=== PATIENT | male | born 1955 | race African-American/Black ===

== ENCOUNTER 2018-03-04 12:43 | Observation (INO) ==
[2018-03-04 14:11] LABS: Basophils # 0.1 10*3/uL (0.0-0.2); Basophils % 1.2 % (0.0-0.8); Eosinophils % 0.7 % (0.00-10.9); Hematocrit 33.9 VOL% (42.0-52.0); Hemoglobin 12.2 GM/DL (14.0-18.0); Immature Granulocytes % 0.3 %; Immature Granulocytes Absolute 0.02 #; Lymphocytes # 1.7 10*3/uL (1.4-4.0); Lymphocytes % 29.7 % (21.2-54.2); Mean Corpuscular Hemoglobin 36 PG (27-34); Mean Platelet Volume 10.8 FL (9.6-12.0); Monocytes # 0.6 10*3/uL (0.11-0.8); Monocytes % 10.6 % (1.7-12.7); Neutrophils # 3.3 10*3/uL (1.4-7.4); Neutrophils % 57.5 % (38.7-73.9); Platelet Count 178 T/CUMM (130-400); Red Blood Count 3.39 MC/CUMM (3.8-5.5); Red Cell Distribution Width 14.9 % (9.3-17.3); White Blood Count 5.7 T/CUMM (4-12)
[2018-03-04 14:30] LABS: Alanine Aminotransferase 17 U/L (16-61); Albumin 3.9 G/DL (3.4-5.0); Alkaline Phosphatase 58 U/L (45-117); Aspartate Amino Transferase 69 U/L (0-37); Blood Urea Nitrogen 9 MG/DL (7-18); Calcium 8.6 MG/DL (8.5-10.1); Glucose 56 MG/DL (74-106); Potassium 3.3 MMOL/L (3.5-5.1); Sodium 143 MMOL/L (136-145); Total Protein 7.2 G/DL (6.4-8.3); Troponin I Only < 0.015 NG/ML (0.00-0.045)
[2018-03-04 14:48] LABS: Apearance,Urine CLEAR (Clear); Bilirubin,Urine Negative (Negative); Blood, Urine Negative (Negative); Glucose,Urine (UA) Negative (Negative); Hyaline Casts,Urine 3 /LPF (0-3); Ketones,Urine 20 mg/dL (Negative); Mucus,Urine Occasional /LPF (Occasional); Nitrite,Urine Negative (Negative); Protein,Urine Negative; Squamous Epithelial Cell,Urine Occasional /HPF (0-10); Urine Color Yellow (Yellow); Urine Specific Gravity 1.018 (1.001-1.035); WBC,Urine 1 /HPF (0-6)
[2018-03-04 15:58] LABS: Lactic Acid 5.8 MMOL/L (0.4-2.0)
[2018-03-04 20:43] LABS: Folate 2.3 NG/ML (5.4-24.0)
[2018-03-04 20:54] LABS: Hepatitis A Ab IgM Quant 0.23 Index; Hepatitis A Ab IgM Result Negative (Negative); Hepatitis B Core IgM Quant 0.15 Index; Hepatitis B Core IgM Result Negative (Negative); Hepatitis B Surface Ag Quant 0.63 Index; Hepatitis B Surface Ag Result Negative (Negative); Hepatitis C Virus Ab Quant 0.17 Index; Hepatitis C Virus Ab Result Negative (Negative)
[2018-03-05 01:32] LABS: Barbiturates Screen,Urine Negative (Negative); Benzodiazepines Screen,Urine Negative (Negative); Cannabinoid Screen,Urine Positive (Negative); Opiate Screen,Urine Negative (Negative); Phencyclidine Screen,Urine Negative (Negative)
[2018-03-05 05:04] LABS: Basophils % 0.8 % (0.0-0.8); Eosinophils # 0.1 10*3/uL (0.0-0.87); Eosinophils % 1.1 % (0.00-10.9); Hematocrit 33.5 VOL% (42.0-52.0); Hemoglobin 11.9 GM/DL (14.0-18.0); Immature Granulocytes % 0.4 %; Immature Granulocytes Absolute 0.02 #; Lymphocytes # 1.1 10*3/uL (1.4-4.0); Lymphocytes % 21.2 % (21.2-54.2); Mean Corpuscular HGB Conc 35.5 GM/DL (32-36); Mean Corpuscular Hemoglobin 35 PG (27-34); Mean Corpuscular Volume 99.4 FL (87-102); Mean Platelet Volume 11.4 FL (9.6-12.0); Monocytes # 0.9 10*3/uL (0.11-0.8); Monocytes % 16.5 % (1.7-12.7); Neutrophils # 3.2 10*3/uL (1.4-7.4); Platelet Count 152 T/CUMM (130-400); Red Blood Count 3.37 MC/CUMM (3.8-5.5); Red Cell Distribution Width 14.6 % (9.3-17.3); White Blood Count 5.3 T/CUMM (4-12)
[2018-03-05 05:33] LABS: Band Neutrophils 5 % (0-10); Eosinophils 1 % (0-10); Lymphocytes 27 % (20-55); Segmented Neutrophils 62 % (50-85); Total Cells Counted 100
[2018-03-05 05:34] LABS: Anisocytosis Slight; Macrocytosis Slight; Platelet Estimate Normal; Target Cells Few
[2018-03-05 05:35] LABS: Basophilic Stippling Slight
[2018-03-05 05:44] LABS: Albumin 3.4 G/DL (3.4-5.0); Bilirubin,Total 0.6 MG/DL (0.2-1.0); Calcium 8.7 MG/DL (8.5-10.1); Osmolality,Calculated 272.7 MOS/KG (273-304); Potassium 3.4 MMOL/L (3.5-5.1); Risk Ratio 1.33; Total Protein 6.5 G/DL (6.4-8.3); VLDL CHOLESTEROL 12.6 MG/DL
[2018-03-05 11:54] VITALS: BP 151/90
== END 2018-03-05 13:30 | disposition home or self-care (01) ==
LOC: N.ED 12:43 → N.EDINP 16:01 → INTOOBSV 16:01 → N.2E 16:23
PROVIDERS: ADMIT Internal Medicine; ATTEND Internal Medicine